=== PATIENT | female | born 1965 | race Caucasian/White ===

== ENCOUNTER 2016-12-21 10:02 | Emergency (ER) | payer OTHER ==
[~2016-12-21] VITALS: Ht 162.6 cm; Wt 82.5 kg
[2016-12-21 10:17] VITALS: BP 167/67; PULSE 101; RESP 24; O2SAT 100
--- NOTE | 2016-12-21 10:22 | ED.REPORT ---
HPI-General Illness Date of Service Dec 21, 2016 ED Provider: Pierce Monroe MD 46 y/o female with no pertinent hx presents to the ED complaining of sudden dizzy episodes, onset over a week ago that last a few seconds. The pt went to urgent care today for the same complaint and was sent to the ED due to an abnormal ECG. Her dizzy spells are not associated with any specific movements and seem random.The pt states "it hits me like a wave" and today it lasted the longest for about a minute. Associated sx include lightheadedness. She denies SOB, chest pain, diaphoresis, numbness in arms and legs, change in speech and difficulty walking. Nursing Notes Stated Complaint: DIZZY Chief Complaint: Neuro Symptoms/ Deficits Nursing Notes Reviewed: Yes Allergies: Coded Allergies: atorvastatin (Verified Allergy, Unknown, 12/21/16) General Time Seen by MD: 10:10 Chief Complaint Dizziness Hx Obtained From: Patient Arrived By: Walk-in Sudden in Onset?: Yes Onset Occurred: 1 week ago Symptom Duration: Intermittent Severity: Current: No pain currently Severity: Maximum: No pain Recent Healthcare: Recent doctor visit Similar Sx Previous: Yes Past Medical History Past Medical History noen reported Past Surgical History Right thyroid nodule and goiter Family History Both the pt's brother had an [place]. They are both heavy smokers and one of them is a diabetic. Pt's father has also had an [place] Smoking History Former Smoker Social History Other Social History: Good social support, Ambulatory Status Independent Review of Systems Full Review of Systems Respiratory: Denies: Shortness of breath Cardiovascular: Denies: Chest pain Skin: Denies Diaphoresis Neurologic: Reports: Dizziness, Lightheaded, Denies: Numbness, Problem walking, Slurred speech, Unable to speak Complete sys rev & neg: except as marked. Physical Exam Vital Signs Vital Signs Date Time Temp Pulse Resp B/P Pulse Ox O2 Delivery O2 Flow Rate FiO2 12/21/16 12:10 87 18 128/64 99 Room Air 12/21/16 10:17 36.7 101 24 167/67 100 Initial VS: Reviewed Head / Eyes: Atraumatic, Normocephalic Neck: Supple, Non-tender, Full range of motion Respiratory: Breath sounds normal, Clear to auscultation, No respiratory distress Cardiovascular: Regular rate & rhythm, Heart sounds normal, Intact distal pulses Abdomen / GI: Soft, Non-tender Extremities: Vascular intact, Neuro intact, No swelling, No tenderness Skin: Warm, Dry, No cyanosis General/Constitutional: Awake, Alert, No acute distress, Cooperative Neurologic: Oriented X3, Speech NL, No motor deficits, No sensory deficits, CN II - XII intact, Memory NL Full neuro exam conducted and found normal. Interpretation & Diagnostics Lab Results Interpretation Result Diagram: 12/21/16 1022 12/21/16 1022 Test 12/21/16 10:22 White Blood Count 7.8th/mm3 (3.8-10.1) Red Blood Count 4.92mil/mm3 (3.90-5.20) Hemoglobin 14.9g/dL (12.0-15.6) Hematocrit 43.0% (35.0-46.0) Mean Corpuscular Volume 87.4fL (81-100) Mean Corpuscular Hemoglobin 30.3pg (27.0-35.0) Mean Corpuscular Hemoglobin Concent 34.7% (32.0-37.0) Red Cell Distribution Width 12.8% (12.3-15.4) Platelet Count 333bil/L (150-400) Neutrophils (%) (Auto) 79.9% (40-74) Lymphocytes (%) (Auto) 14.9% (14-46) Monocytes (%) (Auto) 4.7% (4-12) Eosinophils (%) (Auto) 0.1% (0-5) Basophils (%) (Auto) 0.3% (0-3) Sodium Level 141mEq/L (134-144) Potassium Level 4.0mEq/L (3.5-5.2) Chloride Level 104mEq/L (97-108) Carbon Dioxide Level 23mmol/L (18-29) Blood Urea Nitrogen 13mg/dL (6-24) Creatinine 0.80mg/dL (0.57-1.00) Estimat Glomerular Filtration Rate 108mL/min (>59) Glucose Level 127mg/dL (60-99) Calcium Level 10.0mg/dL (8.5-10.1) Magnesium Level 1.9mg/dL (1.6-2.6) Total Bilirubin 0.4mg/dL (0.0-1.2) Aspartate Amino Transf (AST/SGOT) 20U/L (0-50) Alanine Aminotransferase (ALT/SGPT) 20U/L (0-32) Alkaline Phosphatase 85U/L (25-150) Troponin T 0.010ug/L (0.0-0.011) Total Protein 7.9g/dL (6.4-8.4) Albumin 4.6g/dL (3.4-5.0) Hold Cohen Top Tube Received (Received) ECG Interpretation ECG Interpretation: Normal sinus rhtyhm. Rate 98 Probable left atrial enlargement. Time: 10:26 Interpreted by: ED physician X-Ray Chest Interpretation Chest Xray Interpretation: IMPRESSION: No acute cardiopulmonary disease. Dictated by: Osorio Stahl M.D. on 12/21/2016 at 9:57 Approved by: Osorio Stahl M.D. on 12/21/2016 at 9:58 View: Portable, AP & lat Interpretation / Wet Read by: Interpret - Radiologist Re-Eval/Medical Decision Source of Hx: Old records Time of Eval: 11:39 Patient Status: Condition improved Re-Evaluation/Progress Note: Rechecked pt. Discussed lab results, imaging results, diagnosis and plan to discharge. Pt understands and agrees with the plan. F/U instructions and RTER warning given. All questions addressed. Counseled Regarding: Diagnosis, Lab results, Need for follow-up, When/why to return to ED Discharge & Departure Primary Impression: Dizziness Additional Impression: Near syncope Disposition: Home Discharge Condition All VS Reviewed: Yes Condition: Stable Patient Instructions: Vertigo (ED) Additional Instructions: No dangerous cause for your dizzy spells was discovered today. X-ray and laboratory data and EKG tracings are all reassuring. I recommend follow-up with your primary care provider if the symptoms persist in about a week. Follow up right away for new or worrisome symptoms such as: Unilateral numbness weakness or tingling, severe chest pain, high fever or fainting. Referrals: Heena Ambrose PAC (PCP) Scribe Attestation Portions of this note were transcribed by Nicole Valero. I, , personally performed the history, physical exam and medical decision-making;I reviewed and confirmed the accuracy of the information in the transcribed note. Signed by Golden Souza. 12/21/16 11:47 copies to: Heena Ambrose Kirk H MD Dec 21, 2016 10:22 Nicole Valero Dec 21, 2016 10:58
[2016-12-21 10:43] LABS: BASOPHILS % (AUTO) 0.3 % (0-3); EOSINOPHILS % (AUTO) 0.1 % (0-5); MONOCYTES % (AUTO) 4.7 % (4-12); Mean Corpuscular Hemoglobin 30.3 pg (27.0-35.0); Mean Corpuscular Volume 87.4 fL (81-100); NEUTROPHILS % (AUTO) 79.9 % (40-74); Platelet Count 333 bil/L (150-400)
--- NOTE | 2016-12-21 11:00 | DRSVH ---
PROCEDURE: X-RAY CHEST, TWO VIEWS ([id number]) INDICATIONS: 51 year-old female with dizziness for 2 weeks. TECHNIQUE: 2 views of the chest were acquired. COMPARISON: None. FINDINGS: Surgical changes and devices: Upper abdominal surgical clips are noted on the lateral projection. Lungs and pleura: No pleural effusions or pneumothorax. Lungs are clear. Mediastinum: Mediastinal contours are normal. Heart size is normal. Bones and chest wall: No suspicious bony abnormalities. There is mild thoracic spine disc degenerat ion. Soft tissues appear unremarkable. IMPRESSION: No acute cardiopulmonary disease. Dictated by: Osorio Stahl M.D. on 12/21/2016 at 9:57 Approved by: Osorio Stahl M.D. on 12/21/2016 at 9:58
[2016-12-21 11:08] LABS: TROPONIN T 0.01 ug/L (0.0-0.011)
[2016-12-21 11:19] LABS: Magnesium 1.9 mg/dL (1.6-2.6)
[2016-12-21 12:10] VITALS: BP 128/64; PULSE 87; RESP 18; O2SAT 99
== END 2016-12-21 12:12 | disposition home or self-care (01) ==
LOC: SED 10:02
DX: R55 Syncope and collapse (principal); R42 Dizziness and giddiness; Z87.891 Personal history of nicotine dependence; Z88.8 Allergy status to other drugs, medicaments and biological substances